=== PATIENT | female | born 1990 | race Hispanic/Latino ===

== ENCOUNTER 2020-08-23 05:37 | Outpatient (CLI) | payer OTHER ==
[~2020-08-23] VITALS: Ht 152.4 cm; Wt 75.9 kg
[~2020-08-23 05:37] MED LIST: METR500T PO; NITR100C44 PO
== END 2020-08-23 12:13 | disposition home or self-care (01) ==
LOC: PREOP 05:37
PROVIDERS: ATTEND Surgery
DX: Z01.818 Encounter for other preprocedural examination (principal)

== ENCOUNTER 2020-08-30 07:15 | Day surgery (SDC) | payer OTHER ==
[2020-08-30] VITALS (11 sets, daily range): BP systolic 115–149; BP diastolic 77–98
[~2020-08-30] VITALS: Ht 152.4 cm; Wt 75.9 kg
[2020-08-30] MEDS ORDERED: LIDOCAINE/EPI 1%-1:100,000 (XYLOCAINE) 20ML ONE (07:28)
[2020-08-30] MEDS ORDERED: IOPAMIDOL 61% 30 ML (ISOVUE 300) VIAL ONE (07:28)
[2020-08-30] MEDS ORDERED: SEVOFLURANE (ULTANE) 15 ML INHAL SOLN ONE ×3 (07:39→09:38)
[2020-08-30] MEDS ORDERED: LIDOCAINE PF 2% 5 ML (XYLOCAINE) VIAL ONE (07:39)
[2020-08-30] MEDS ORDERED: proPOfol 200 MG/20 ML (DIPRIVAN) VIAL IV ONE (07:39)
[2020-08-30] MEDS ORDERED: ONDANSETRON 4 MG/2 ML (SDV) Z0FRAN ONE (07:39)
[2020-08-30] MEDS ORDERED: ROCURONIUM 10 MG/ML 5 ML SYRINGE IV ONE (07:39)
[2020-08-30] MEDS ORDERED: MIDAZOLAM 2 MG/2 ML (VERSED) VIAL ONE (07:41)
[2020-08-30] MEDS ORDERED: fentaNYL INJ 100 MCG/2 ML AMP ONE ×2 (07:42→09:24)
[2020-08-30] MEDS ORDERED: ceFAZolin INJECTION 1,000 MG in WATER (STERILE) FOR INJECTION 10 ML IV ONE (07:45)
[2020-08-30] MEDS: LACTATED RINGERS 1,000 ML IV PRN ×2 (07:50→10:13)
--- NOTE | 2020-08-30 08:00 | Progress Note-Pre Operative ---
Pre-Operative Progress Note H&P Reviewed The H&P was reviewed, patient examined and no changes noted. Date Seen by Provider: Aug 30, 2020 Time Seen by Provider: 07:59 Date H&P Reviewed: Aug 30, 2020 Time H&P Reviewed: 07:59 Pre-Operative Diagnosis: gallbladder mass, epigastric abd pain RAFFY RUBIO DO Aug 30, 2020 08:00
[2020-08-30 08:18] LABS: HEMOGLOBIN 13.2 g/dL (11.5-16.0); MEAN PLATELET VOLUME 10.7 fL (9.0-12.2); WHITE BLOOD COUNT 8.1 10^3/uL (4.3-11.0)
[2020-08-30] MEDS ORDERED: NEOSTIGMINE 3 MG/3 ML VIAL ONE (09:37)
[2020-08-30] MEDS ORDERED: GLYCOPYRROLATE 0.2 MG/ML (ROBINUL) 2 ML VIAL ONE (09:37)
--- NOTE | 2020-08-30 09:48 | Progress Note-Post Operative ---
Post-Operative Progess Note Surgeon (s)/Keypuncher (s) Surgeon RAFFY RUBIO DO Keypuncher: Dr. De La Paz to assist in retratction dissection and closure. Pre-Operative Diagnosis GALL BLADDER MASS, EPIGASTRIC Abdominal pain Post-Operative Diagnosis same Procedure & Operative Findings Date of Procedure 08/30/20 Procedure Performed/Findings PROCEDURE: Laparoscopic cholecystectomy with intraoperative cholangiogram. COMPLICATIONS: None. PROCEDURE: The patient was taken to the operating suite and was prepped and draped in sterile fashion. A surgical pause was performed. Just superior to the umbilicus, a 12 mm incision was made. Dissection was taken down to the fascia, which was then scored and grasped with a Cem and the abdomen was then entered. A 0 Vicryl suture was placed in a ammnhu-uy-wcyrm fashion and a Ferrara trocar was placed and secured. Pneumoperitoneum was achieved. A 5mm trochar place in the subxyphoid and 2 in the right upper quadrant. The gallbladder was then grasped and elevated. The cystic duct, and cystic artery were then dissected out. Clip was placed on the distal portion of the cystic duct which was then partially transected. An arrow catheter was inserted into the duct. The cholangiogram was then performed. No filing defects and contrast made its way into the duodenum. Catheter removed. Clips were placed on proximal portion of the cystic duct and then the duct was then transected. Clips were placed along the proximal and distal portion of the cystic artery which was then transected. Hook cautery was used to dissect the gallbladder from the gallbladder fossa achieving hemostasis. The gallbladder was placed in an Endobag and removed through the 12 mm trocar site. The abdomen was then reinspected. Copious amounts of irrigation were used to irrigate the abdomen and there were no signs of active bleeding. Hemostasis had been achieved. The 12 mm fascial defect was then closed with 0 Vicryl suture that had been placed in a jhgrdz-ah-[id number] fashion. The abdomen was then desufflated, the trocars were removed. The abdomen was then washed and dried. The skin was then closed using 4-0 Monocryl in a subcuticular fashion. The abdomen was washed and dried and Skin Affix was place over incisions. Patient tolerated the procedure well without any complications and was taken to the recovery room in stable condition. Anesthesia Type general Estimated Blood Loss Estimated blood loss (mL): minimal Specimens/Packing Specimens Removed gallbladder RAFFY RUBIO DO Aug 30, 2020 09:48
[2020-08-30] MEDS ORDERED: DOCU-143 PO (09:49)
[2020-08-30] MEDS ORDERED: ACHD5005 PO (09:49)
--- NOTE | 2020-08-30 09:50 | Discharge Inst-Simple/Standard ---
Discharge Inst-Standard Discharge Medications New, Converted or Re-Newed RX: RX on Chart Patient Instructions/Follow Up Plan of Care/Instructions/FU: 2-3 weeks Francis Activity as Tolerated: No Discharge Diet: Regular Diet Other Inst to Patient Follow up Appt: Make appointment for 2-3 weeks. Instructions: No lifting greater than 10 pounds. No strenuous activity. May shower in 24 hours, no tub bath or soaking. Use incentive spirometer at home as directed. No Smoking Skin/Wound Care: You have special glue over incision, it will fall off on it's own. Symptoms to Report: Appetite Changes, Extremity Discoloration, Numbness/Tingling, Swelling Increased, Bleeding Excessive, Eyesight Changes, Pain Increased, Urine Color Change, Constipation(Persistent), Fever over 101 degree F, Pain/Pressure in chest, Urinating Difficulty, Cough Up/Vomit Blood, Heart Beat Irreg/Pounding, Pain/Pressure in jaw, Vaginal Bleeding Increase, Cramps in feet or legs, Lightheadedness, Pain/Pressure in shoulder, Diarrhea(Persistent), Memory Changes Suddenly, Questions/Concerns, Weight gain consecutive days, Dizziness/Fainting, Nausea/Vomiting, Shortness of Breath, Weight gain over 2 pounds. If eyes or skin turn yellow notify physician. If questions or concerns contact your physician Or seek help at emergency department. RAFFY RUBIO DO Aug 30, 2020 09:50
[2020-08-30] MEDS ORDERED: MEPERIDINE (DEMEROL) INJ 50 MG/ML IVP ONE (10:15)
[2020-08-30] MEDS ORDERED: ONDANSETRON 4 MG/2 ML (SDV) Z0FRAN IVP PRN (10:15)
[2020-08-30] MEDS ORDERED: morphine INJ 10 MG/ML 1ML (SYR OR VIAL) IVP ONE (10:15)
--- NOTE | 2020-08-30 10:16 | Diagnostic Imaging Report ---
Indication: Abdominal pain. COMPARISON: Sonogram dated 10/17/2014 Total fluoroscopy time: 12.3 seconds Total number fluoroscopic images saved: 71 FINDINGS: Multiple intraoperative image intensifier views of the right upper abdominal quadrant were obtained during intraoperative cholangiogram. Images provided show contrast opacifying the common bile duct. No distinct intraluminal filling defects are seen. There is emptying of contrast into the small bowel, as expected. IMPRESSION: 1. Intraoperative cholangiogram as above. Dictated by: Dictated on workstation # [id number]
[2020-08-30] MEDS ORDERED: HYDROcodone/APAP 5 MG/325 MG (LORTAB) TAB ONE (11:17)
[2020-08-30] MEDS ORDERED: HYDROcodone/APAP 5 MG/325 MG (LORTAB) TAB PO ONE (11:30)
[2020-08-30] MEDS ORDERED: ONDANSETRON 4 MG/2 ML (SDV) Z0FRAN IVP ONE (12:00)
--- NOTE | 2020-09-05 11:13 | Anesthesia-General Post-Op ---
General Significant Intra-Op Events Notes addendum 08-30-20 at 1100 Patient Condition Mental Status/LOC: Same as Preop Cardiovascular: Satisfactory Nausea/Vomiting: Absent Respiratory: Satisfactory Pain: Controlled Complications: Absent Post Op Complications Complications None Follow Up Care/Instructions Patient Instructions None needed. Anesthesia/Patient Condition Patient Condition Patient is doing well, no complaints, stable vital signs, no apparent adverse anesthesia problems. No complications reported per nursing. SHADE MONTANO CRNA Sep 05, 2020 11:13
== END 2020-08-30 13:50 | disposition home or self-care (01) ==
LOC: SDC 07:15
PROVIDERS: ATTEND Surgery
DX: K81.1 Chronic cholecystitis (principal); E66.9 Obesity, unspecified; Z68.32 Body mass index [BMI] 32.0-32.9, adult; Z79.899 Other long term (current) drug therapy
CPT/HCPCS: 36415; 36430; 76000; 84703; 85027; 87081; 88304